=== PATIENT | female | born 1975 | race Caucasian/White ===

== ENCOUNTER → 2016-11-02 | Outpatient (CLI) | payer OTHER ==
--- NOTE | 2016-11-02 16:27 | DI ---
XR TOES MIN 2VW,11/02/2016 3:37 PM: Clinical History: Injury of the right great toe Previous Exam: None at this facility. Findings: 3 views of the first toe are obtained, and demonstrate anatomic alignment without fractures. Joint sp aces are preserved. The surrounding soft tissues are unremarkable. Impression: No fractures.
== END ==
LOC: MOB RAD 15:39
PROVIDERS: ATTEND Physician Assistant
DX: S99.921A Unspecified injury of right foot, initial encounter (principal); F17.200 Nicotine dependence, unspecified, uncomplicated; Y33.XXXA Other specified events, undetermined intent, initial encounter; Y93.89 Activity, other specified; Y92.128 Other place in nursing home as the place of occurrence of the external cause; Y99.0 Civilian activity done for income or pay
CPT/HCPCS: 73660

== ENCOUNTER → 2017-02-08 | Outpatient (CLI) | payer SELFPAY | LOC: MOB LAB 16:31 | PROVIDERS: ATTEND Physician Assistant | DX: R30.0 Dysuria (principal) | CPT/HCPCS: 87077; 87088; 87186 ==